=== PATIENT | female | born 1940 | race Caucasian/White ===

== ENCOUNTER 2019-05-20 05:44 | Day surgery (SDC) | payer MEDICARE, OTHER ==
[~2019-05-20] VITALS: Ht 162.6 cm; Wt 78.2 kg
[~2019-05-20 05:44] MED LIST: APIX5TAB GT; ATEN-187 GT; ATOR20TA86 GT; BUDESONIDE SUSP IH; HYDR-1475 GT; INSLAN SQ; INSU100V SQ; LANS30CA56 GT; LOSA50TA37 GT; MELA3TAB82 GT; METF-960 GT; MULT-248 GT; POLY250020 GT; SENN1TAB72 GT; SERT50TA12 GT; SUCR1TAB28 GT; [UNRECOGNIZED DRUG - OTHER] IH
[2019-05-20] MEDS ORDERED: LIDOCAINE 2% 5 ML JELLY TP ONE (05:45)
[2019-05-20] MEDS ORDERED: LIDOCAINE 2% 30 ML JELLY TP ONE (05:45)
[2019-05-20] MEDS ORDERED: ALBUTEROL SULFATE 2.5 MG/0.5 ML NEB SOLUTION NEB ONE (05:45)
[2019-05-20] MEDS ORDERED: LIDOCAINE 4% 50 ML SOLUTION TP ONE (05:45)
[2019-05-20] MEDS ORDERED: BENZOCAINE 20% 50 MCG/SPRAY 57 GM TP ONE (05:45)
[2019-05-20] MEDS ORDERED: SODIUM CHLORIDE 0.9% 1,000 ML ONE (05:59)
[2019-05-20] MEDS ORDERED: SODIUM CHLORIDE 0.9% 1,000 ML IV ONE (07:00)
[2019-05-20 07:24] LABS: GLUCOMETER DEV NAME(LOC) SDS.; GLUCOSE,POINT OF CARE 112 MG/DL (70-110)
[2019-05-20] MEDS ORDERED: FentaNYL CITRATE-PF 100 MCG/2 ML VIAL ONE (08:11)
[2019-05-20] MEDS ORDERED: MIDAZOLAM HCL 2 MG/2 ML VIAL ONE (08:11)
[2019-05-20] MEDS ORDERED: MethylPREDNISolone SOD SUCC 125 MG/2 ML VIAL IVP ONE (08:45)
[2019-05-20] MEDS ORDERED: MethylPREDNISolone SOD SUCC 125 MG/2 ML VIAL ONE (09:35)
[2019-05-20] MEDS ORDERED: OXYGEN THERAPY IH SCH (20:00)
== END 2019-05-20 10:30 | disposition home or self-care (01) ==
LOC: SURGERY 05:44
PROVIDERS: ATTEND Internal Medicine Critical Care Medicine
DX: R05 Cough (principal); R04.2 Hemoptysis; J34.89 Other specified disorders of nose and nasal sinuses; J98.8 Other specified respiratory disorders; J38.4 Edema of larynx; B37.0 Candidal stomatitis; Z86.73 Personal history of transient ischemic attack (TIA), and cerebral infarction without residual deficits; I11.9 Hypertensive heart disease without heart failure; E11.9 Type 2 diabetes mellitus without complications; D64.9 Anemia, unspecified; F34.9 Persistent mood [affective] disorder, unspecified; I48.91 Unspecified atrial fibrillation; F32.9 Major depressive disorder, single episode, unspecified; F41.9 Anxiety disorder, unspecified; Z95.1 Presence of aortocoronary bypass graft; Z95.2 Presence of prosthetic heart valve; Z79.899 Other long term (current) drug therapy
CPT/HCPCS: 31623; 31624; 71045; 82962; 87015; 87070; 87077; 87101; 87186; 87205; 87206; 87220; 88112; 88312; 93005; J2250; J2930; J3010; J7030